=== PATIENT | female | born 1990 | race Caucasian/White ===

== ENCOUNTER 2021-09-17 09:18 | Emergency (ER) | payer OTHER | END 2021-09-17 09:53 | disposition home or self-care (01) | LOC: BURERS 09:18 | DX: S62.655A Nondisplaced fracture of middle phalanx of left ring finger, initial encounter for closed fracture (principal); F17.290 Nicotine dependence, other tobacco product, uncomplicated; W19.XXXA Unspecified fall, initial encounter ==

== ENCOUNTER 2021-11-28 14:39 | Emergency (ER) | payer OTHER ==
[2021-11-28] MEDS ORDERED: Glycopyrrolate 0.4 MG/ 2 ML VIAL ONE (15:04)
[2021-11-28] MEDS ORDERED: Famotidine In NaCl 20 mg/50 ml Premix Bag ONE (15:04)
[2021-11-28] MEDS ORDERED: Ondansetron PF 4 MG/2 ML Vial ONE ×2 (15:04→16:00)
[2021-11-28 15:25] LABS: ALT (SGPT) 16 U/L (8-55); AST (SGOT) 16 U/L (5-34); Albumin 4.5 g/dL (3.5-5.0); Alkaline Phosphatase 66 U/L (40-110); Anion Gap 14 mmol/L (10-20); BUN (Urea Nitrogen) 9 mg/dL (7.0-18.7); Bilirubin, Total 0.9 mg/dL (0.2-1.2); Calc. Creatinine Clearance 0 mL/min (70-130); Calcium 9.5 mg/dL (7.8-10.44); Carbon Dioxide 25 mmol/L (22-29); Chloride 103 mmol/L (98-107); Glucose 86 mg/dL (70-105); Lipase 11 U/L (8-78); Potassium 3.7 mmol/L (3.5-5.1); Protein, Total 7.5 g/dL (6.0-8.3); Sodium 138 mmol/L (136-145)
[2021-11-28 15:26] LABS: Band 1 % (5-11); Eosinophils 6 % (0-10); Hemoglobin 15.3 g/dL (12.0-16.0); Lymphocytes 7 % (21-51); MDiff Complete? YES; Mean Corpuscular HGB CONC 33.8 g/dL (32.0-36.0); Mean Corpuscular Hemoglobin 29.8 pg (27.0-31.0); Mean Corpuscular Volume 88.2 fL (78.0-98.0); Mean Platelet Volume 6.9 fL (7.4-10.4); Monocytes 2 % (0-10); Neutrophil 82 % (42-75); Platelet Count 300 thou/uL (130-400); RBC Distribution Width 11.5 % (11.5-14.5); Red Blood Cell (RBC) Count 5.13 mill/uL (4.20-5.40); White Blood Cell (WBC) Count 10.9 thou/uL (4.8-10.8)
[2021-11-28 16:22] LABS: Bilirubin Small (Negative); Blood, Urine Negative (Negative); Glucose, Urine (Dipstick) Negative (Negative); Ketone, Urine 40 mg/dL (Negative); Leukocyte Trace (Negative); Nitrite Negative (Negative); Protein, Urine (Dipstick) Trace mg/dL (Neg-Trace); pH, Urine 7.5 (5.0-9.0)
[2021-11-28 16:25] LABS: Clarity Hazy (Clear)
[2021-11-28 16:26] LABS: Bacteria/HPF 1+ HPF (None Seen); Pregnancy Test - Urine (BHCG) Negative (Negative); RBC/HPF 0-3 HPF (0-3); WBC/HPF 0-3 HPF (0-3)
[2021-11-28 16:27] LABS: Pregu Control Background? CLEAR/WHITE (CLR/WHITE); Pregu Control Bar Appear? YES (CONTROL BAR)
== END 2021-11-28 17:04 | disposition home or self-care (01) ==
LOC: BURERS 14:39
DX: R11.2 Nausea with vomiting, unspecified (principal); F17.290 Nicotine dependence, other tobacco product, uncomplicated
CPT/HCPCS: 36415; 80053; 81003; 81015; 81025; 83690; 85025; 96365; 96375; 96376; J2405